=== PATIENT | male | born 2000 | race Two or more races ===

== ENCOUNTER 2022-06-07 09:17 | Emergency (ER) | payer SELFPAY ==
[2022-06-07] MEDS ORDERED: IBUPROFEN 600 MG TABLET PO STA (10:22)
[2022-06-07] MEDS ORDERED: ACETAMINOPHEN 325 MG TABLET PO STA (10:22)
--- NOTE | 2022-06-07 10:25 | ED Physician Documentation ---
History of Present Illness - Stated complaint Stated Complaint: FALL/BACK PX - Chief complaint Chief Complaint: Trauma Ch/Bk - History obtained from History obtained from: Patient, Friend - Additonal information Additional information: The patient comes to the emergency department with chief complaint of low back pain after taking a fall on some stairs today. He states that he was at work when this happened and that he just slipped and fell backwards. He struck his back directly against the stairs. He has had low back pain since. He has a little bit of pain radiating into his right leg but mostly, its in the midline of his low back and stretching across to either side. He denies any numbness, tingling, or weakness in his lower extremities. He states that he has control of his bowels and bladder and has had no incontinence. The patient also complains of hitting the back of his right shoulder and having some pain there. No other complaints at this time. He is otherwise healthy and has no prior history of any back issues. PD PAST MEDICAL HISTORY - Allergies Allergies/Adverse Reactions: Allergies Allergy/AdvReac Type Severity Reaction Status Date / Time No Known Drug Allergies Allergy Verified 06/07/22 09:28 PD ED PE NORMAL - Vitals Vital signs reviewed: Yes - General General: Alert and oriented X 3, No acute distress, Well developed/nourished, Other - HEENT HEENT: Atraumatic, PERRL, EOMI, Moist mucous membranes - Neck Neck: Supple, no meningeal sign - Cardiac Cardiac: Strong equal pulses - Respiratory Respiratory: No respiratory distress - Abdomen Abdomen: Soft, Non tender, Non distended - Derm Derm: Normal color, Warm and dry, Other (Abrasion over posterior right shoulder.) - Extremities Extremities: No deformity - Neuro Neuro: Alert and oriented X 3 - Psych Psych: Normal mood, Normal affect Results - Vitals Vitals: Vital Signs - 24 hr 06/07/22 12:00 Heart Rate 76 Respiratory 16 Rate Blood Pressure 129/67 O2 Saturation 98 Oxygen O2 Source Room air - Rads (name of study) Lumbar spine XR Relevant Findings:: Final report received, See rad report (nad) PD Medical Decision Making - ED course Complexity details: reviewed results, re-evaluated patient, considered differential, d/w patient ED course: The patient was worked up with x-ray series of his lumbar spine and given ibuprofen, Tylenol, and an ice pack in the emergency department. XR series negative. We have discussed home management of sx and the usual indications for follow-up and return. Departure - Departure Disposition: 01 Home, Self Care Clinical Impression: Lumbar contusion Qualifiers: Encounter type: initial encounter Qualified Code(s): S30.0XXA - Contusion of lower back and pelvis, initial encounter Condition: Stable Instructions: ED Contusion Back Print Language: Citizen Of [place] Comments: Your x-rays look good. There is no evidence of any broken bones in your back. You most likely bruised your back, and this will probably take a week or 2 to feel completely better. You may apply ice packs and use ibuprofen 600 mg every 6 hours if needed for the pain. You may also take Tylenol 650 mg every 4 hours as needed. Please follow-up with your primary doctor as needed Discharge Date/Time: 06/07/22 12:00
[2022-06-07 12:01] VITALS: BP 129/67
--- NOTE | 2022-06-07 13:45 | XRAY Report ---
PROCEDURE: Lumbar Spine 2 View INDICATIONS: fall on stairs, hit back, pain L1-4 TECHNIQUE: 3 views of the lumbar spine were acquired. COMPARISON: None. FINDINGS: Bones: 5 [id number] vertebrae are present. There is normal bony alignment. No vertebral body compression fractures. No suspicious bony lesions. Soft tissues: Overlying bowel gas pattern is normal. No suspicious soft tissue calcifications. IMPRESSION: No evidence acute bony abnormality of the lumbar spine. If clinical suspicion and/or symptoms persist, further assessment with repeat plain films or advanced imaging (e.g., CT, MRI, or bone scan) may be helpful for further assessment. Reviewed by: Julio César Pollard MD on 06/07/2022 10:57 AM PDT Approved by: Julio César Pollard MD on 06/07/2022 10:57 AM PDT Station ID: [id number]
== END 2022-06-07 12:00 | disposition home or self-care (01) ==
LOC: ED 09:17
DX: S30.0XXA Contusion of lower back and pelvis, initial encounter (principal); W10.9XXA Fall (on) (from) unspecified stairs and steps, initial encounter
CPT/HCPCS: 72100; 99283; A9270